=== PATIENT | female | born 2000 | race Caucasian/White ===

== ENCOUNTER 2023-12-05 16:43 | Emergency (ER) | payer MEDICAID, OTHER ==
[~2023-12-05] VITALS: Ht 165.1 cm; Wt 103.0 kg
[2023-12-05 16:51] VITALS: O2SAT 97
[2023-12-05] MEDS: ONDANSETRON 4MG ODT PO ONE (18:07)
[2023-12-05] MEDS: HYDROCODONE/ACETAMINOPHEN 5/325MG TABLET PO ONE (18:07)
[2023-12-05] MEDS: PANTOPRAZOLE 40MG DR TABLET PO ONE (18:07)
[2023-12-05 19:09] LABS: BASOPHILS % 0.2 % (0.0-2.0); EOSINOPHILS % 0.3 % (0.0-5.0); HEMATOCRIT. 43.9 % (36.0-48.0); HEMOGLOBIN. 14.5 g/dL (12.0-16.0); MEAN CORPUSCULAR HEMOGLOBIN 27.8 pg (28.0-32.0); MEAN CORPUSCULAR HGB CONC 33.1 g/dL (31.0-37.0); MEAN CORPUSCULAR VOLUME 84.1 fL (81.0-99.0); MEAN PLATELET VOLUME 10.6 fl (7.4-10.4); MONOCYTES % 5.3 % (2.0-8.0); NEUTROPHILS % 78.2 % (40.0-76.0); PLATELET 187 x1000/uL (130-400); RED BLOOD CELL COUNT 5.22 mill/uL (4.2-5.4); WHITE BLOOD COUNT 9.8 x1000/uL (4.5-11.0)
[2023-12-05 19:14] LABS: CARBON DIOXIDE 27 mEq/L (21-32); CHLORIDE 108 mEq/L (98-107); POTASSIUM 3.4 mEq/L (3.5-5.1); SODIUM 141 mEq/L (136-145)
[2023-12-05 19:15] LABS: CALCIUM 9.3 mg/dL (8.7-10.4)
[2023-12-05 19:20] LABS: CREATININE 0.7 mg/dL (0.6-1.0); GLUCOSE 122 mg/dL (70-105); UREA NITROGEN BLOOD 8 mg/dL (9-23)
[2023-12-05 19:22] LABS: ALANINE AMINOTRANSFERASE 49 IU/L (10-49); ALBUMIN 4.5 g/dL (3.2-4.8); ASPARTATE AMINOTRANSFERASE 20 IU/L (<34); BILIRUBIN DIRECT 0.2 mg/dL (<=3.0); BILIRUBIN TOTAL 0.6 mg/dL (0.1-1.0); PROTEIN TOTAL 7.7 g/dL (6.0-8.3)
[2023-12-05 19:23] LABS: HCG SCREEN NEGATIVE
[2023-12-05 20:17] LABS: CLARITY URINE CLOUDY (CLEAR); COLOR URINE ORANGE (YELLOW); GLUCOSE URINE NEGATIVE (NEGATIVE); KETONES URINE TRACE (NEGATIVE); LEUKOCYTE ESTERASE URINE 1+ (NEGATIVE); NITRITE URINE NEGATIVE (NEGATIVE); OCCULT BLOOD URINE 3+ (NEGATIVE); PROTEIN URINE 2+ (NEGATIVE); SPECIFIC GRAVITY URINE 1.034 (1.005-1.030)
[2023-12-05 20:41] LABS: BACTERIA URINE TRACE; RBC URINE TNTC /hpf (0-2); SQUAMOUS EPITHELIAL CELL URINE 1+ /lpf (RARE/1+)
[2023-12-05] MEDS ORDERED: LOPE2CAP MT (20:53)
[2023-12-05] MEDS ORDERED: FAMO-135 MT (20:53)
[2023-12-05] MEDS: POTASSIUM CHLORIDE 20MEQ TABLET SR PO ONE (21:10)
[2023-12-05 21:20] VITALS: BP 105/68; PULSE 71; RESP 16; TEMP 36.94740; O2SAT 100
== END 2023-12-05 21:35 | disposition home or self-care (01) ==
LOC: ER 16:43
DX: K52.9 Noninfective gastroenteritis and colitis, unspecified (principal); K80.20 Calculus of gallbladder without cholecystitis without obstruction; Z90.49 Acquired absence of other specified parts of digestive tract
CPT/HCPCS: 99284; 76705; 80076; 80048; 81003; 81025; 84703; 83690; 85025; 36415; Q0162

== ENCOUNTER 2025-01-03 05:07 | Emergency (ER) | payer SELFPAY ==
[~2025-01-03] VITALS: Ht 165.1 cm; Wt 96.0 kg
[~2025-01-03 05:07] MED LIST: FAMO-135 MT; LOPE2CAP MT
[2025-01-03 05:15] VITALS: O2SAT 98
[2025-01-03 05:55] LABS: BASOPHILS % 0.5 % (0.0-2.0); EOSINOPHILS % 3.9 % (0.0-5.0); HEMATOCRIT. 41.4 % (36.0-48.0); HEMOGLOBIN. 13.5 g/dL (12.0-16.0); LYMPHOCYTES % 26.6 % (20.0-50.0); MEAN PLATELET VOLUME 11.1 fl (7.4-10.4); MONOCYTES % 3.7 % (2.0-8.0); NEUTROPHILS % 65.3 % (40.0-76.0); PLATELET 197 x1000/uL (130-400); RED BLOOD CELL COUNT 5.05 mill/uL (4.2-5.4); RED CELL DISTRIBUTION WIDTH 14.3 % (11.6-14.6)
[2025-01-03 06:14] LABS: CREATININE 0.7 mg/dL (0.6-1.0); HCG SCREEN NEGATIVE; UREA NITROGEN BLOOD 8 mg/dL (9-23)
[2025-01-03 06:15] LABS: ASPARTATE AMINOTRANSFERASE 20 IU/L (<34)
[2025-01-03 06:16] LABS: BILIRUBIN DIRECT 0.2 mg/dL (<=3.0); BILIRUBIN TOTAL 0.6 mg/dL (0.1-1.0); PROTEIN TOTAL 7.0 g/dL (6.0-8.3)
[2025-01-03] MEDS: VISCOUS LIDOCAINE 2% 15 ML UDC MM ONE (06:43)
[2025-01-03] MEDS: ONDANSETRON 4MG ODT PO ONE (06:43)
[2025-01-03] MEDS: FAMOTIDINE 20MG TABLET PO ONE (06:43)
[2025-01-03] MEDS: MAGNESIUM/ALUMINUM HYDROXIDE/SIMETHICONE 30ML UDC PO ONE (06:43)
[2025-01-03] MEDS: ACETAMINOPHEN 325MG TABLET PO ONE (06:43)
[2025-01-03 06:47] LABS: CLARITY URINE CLOUDY (CLEAR); COLOR URINE YELLOW (YELLOW); GLUCOSE URINE NEGATIVE (NEGATIVE); KETONES URINE 1+ (NEGATIVE); LEUKOCYTE ESTERASE URINE 1+ (NEGATIVE); NITRITE URINE NEGATIVE (NEGATIVE); OCCULT BLOOD URINE NEGATIVE (NEGATIVE); PH URINE 5.5 (4.5-8.0); PROTEIN URINE TRACE (NEGATIVE); SPECIFIC GRAVITY URINE 1.031 (1.005-1.030); UROBILINOGEN URINE 1.0 E.U./dL (0.2-1.0)
[2025-01-03 07:12] LABS: AMORPHOUS SEDIMENT URINE 1+ /lpf; BACTERIA URINE TRACE; RBC URINE NONE SEEN /hpf (0-2); SQUAMOUS EPITHELIAL CELL URINE 3+ /lpf (RARE/1+)
[2025-01-03] MEDS ORDERED: TOPUD PO (08:19)
[2025-01-03] MEDS ORDERED: OMEP20CA14 PO (08:19)
[2025-01-03 08:44] VITALS: BP 112/81; PULSE 83; RESP 16; TEMP 36.8; O2SAT 100
== END 2025-01-03 08:45 | disposition home or self-care (01) ==
LOC: ER 05:07
DX: K21.9 Gastro-esophageal reflux disease without esophagitis (principal); K29.70 Gastritis, unspecified, without bleeding; Z79.899 Other long term (current) drug therapy; Z90.49 Acquired absence of other specified parts of digestive tract; Z87.19 Personal history of other diseases of the digestive system
CPT/HCPCS: 99284; 76705; 80076; 80048; 81003; 81025; 84703; 83690; 85025; 36415; 93005; Q0162